=== PATIENT | female | born 1975 | race Caucasian/White ===

== ENCOUNTER 2018-09-16 09:50 | Emergency (ER) | payer OTHER ==
[~2018-09-16] VITALS: Ht 175.3 cm; Wt 68.0 kg
[2018-09-16] MEDS ORDERED: AVAPRO75 MG (10:08)
== END 2018-09-16 11:20 | disposition home or self-care (01) ==
LOC: ER 09:50
DX: T78.49XA Other allergy, initial encounter (principal); R21 Rash and other nonspecific skin eruption